=== PATIENT | female | born 1955 | race Caucasian/White ===

== ENCOUNTER 2021-11-26 21:48 | Emergency (ER) | payer MEDICARE ==
[2021-11-26] MEDS ORDERED: Lactated Ringers 1,000 ML IV ONE (22:06)
[2021-11-26] MEDS ORDERED: methylPREDNISolone Sodium Succinate 40 MG/1 ML SDV IVPUSH ONE (22:57)
[2021-11-26] MEDS ORDERED: diphenhydrAMINE 50 MG/ML SDV IVPUSH ONE (23:53)
== END 2021-11-27 01:30 | disposition home or self-care (01) ==
LOC: JP.ED 21:48
DX: T78.2XXA Anaphylactic shock, unspecified, initial encounter (principal); Z88.1 Allergy status to other antibiotic agents; Z79.899 Other long term (current) drug therapy
CPT/HCPCS: 96361; 96374; 96375; 99285; J1200; J2920; J7120